=== PATIENT | male | born 1945 | race Caucasian/White ===

== ENCOUNTER 2019-06-13 10:14 | Day surgery (SDC) | payer MEDICARE, OTHER ==
[2019-06-12 15:03] VITALS: BMI 34.9
[~2019-06-13 10:14] MED LIST: Dexamethasone 20 MG/5 ML VIAL ONE; Glycopyrrolate 0.2 MG/ML 5 ML SYRINGE ONE; Lidocaine 1% PF 5 ML VIAL ONE; Ondansetron PF 4 MG/2 ML Vial ONE; PHENYLEPHRINE-NS 100 MCG/ML 10 ML SYRINGE ONE; PROPOFOL 200 MG/20 ML VIAL ONE; Rocuronium Bromide 10 MG/ML (10ML VIAL) ONE; ePHEDrine/0.9% NaCl/PF SYRINGE 50 mg/10 ml ONE
[2019-06-13] MEDS ORDERED: AFRIN NASAL MIST 15 ML BOT ONE ×2 (10:45→13:11)
[2019-06-13 11:08] LABS: Hemoglobin 15.3 g/dL (14.0-18.0)
[2019-06-13 11:28] LABS: Anion Gap 13 mmol/L (10-20); BUN (Urea Nitrogen) 13 mg/dL (8.4-25.7); Calc. Creatinine Clearance 95 mL/min (70-130); Calcium 10.4 mg/dL (7.8-10.44); Carbon Dioxide 28 mmol/L (23-31); Chloride 104 mmol/L (98-107); Estimated GFR-MDRD 74; Glucose 125 mg/dL (83-110); Potassium 5.4 mmol/L (3.5-5.1); Sodium 140 mmol/L (136-145)
[2019-06-13] MEDS ORDERED: Bacitracin Zinc Ointment 30 gm TUBE ONE (13:11)
[2019-06-13] MEDS ORDERED: Lidocaine 1% w/Epinephrine 1:100K 20 ML VIAL ONE (13:11)
[2019-06-13] MEDS ORDERED: Fentanyl 100 MCG/2 ML VIAL ONE ×2 (13:18→14:38)
[2019-06-13] MEDS ORDERED: HYDROcodone/Acetaminophen 5/325 mg Tablet ONE (15:54)
--- NOTE | 2019-06-14 12:27 | OP ---
DATE OF PROCEDURE: 06/13/2019 PREOPERATIVE DIAGNOSES: 1. Chronic rhinosinusitis. 2. Bilateral nasal polyposis. 3. Bilateral inferior turbinate hypertrophy. 4. Nasal obstruction. POSTOPERATIVE DIAGNOSES: 1. Chronic rhinosinusitis. 2. Bilateral nasal polyposis. 3. Bilateral inferior turbinate hypertrophy. 4. Nasal obstruction. PROCEDURES PERFORMED: 1. Bilateral endoscopic sinus surgery, total ethmoidectomies. 2. Bilateral endoscopic sinus surgery, maxillary antrostomies with removal of tissue. 3. Bilateral endoscopic sinus surgery, frontal sinusotomy with removal of tissue. 4. Bilateral endoscopic sinus surgery, sphenoidotomy with removal of tissue. 5. Bilateral inferior turbinate submucosal resection. 6. [employer] cranial-base image-guided navigational surgery. ESTIMATED BLOOD LOSS: 50 mL. COMPLICATIONS: None. ANESTHESIA: GETA. DESCRIPTION OF PROCEDURE: The patient was taken to the operating room and placed supine on the table. General endotracheal anesthesia was obtained by the Anesthesia Staff. Tube was secured in the left lower lip and the patient was positioned in the beach chair position. Afrin pledgets were placed in nasal cavity as the patient was prepped and draped for standard nasal procedure. Following this, the PulmonxX image-guided system was set up and calibrated was noted to be within 1 mm of accuracy. Following this, a 0-degree endoscope was advanced in the middle meatus. There were large polyps protruding from the middle meatus as well as purulent secretions and inflamed mucosa throughout the nasal cavity. The 1% lidocaine with 1:100,000 epinephrine was injected into the middle turbinates, inferior turbinates, and lateral nasal wall bilaterally. Following this, the middle turbinates were gently medialized using a [place] elevator and the 0-degree microdebrider was then used to remove the polyps that were obstructing this middle meatus area bilaterally. Polyps on the right side were sent for pathological analysis. The uncinate process was anteriorly fractured using a ball-ended probe bilaterally and was then removed using the microdebrider and up-biting [place] forceps bilaterally. Following this, the natural maxillary sinus ostia were identified using a ball-ended probe and the curved microdebrider and straight [place] forceps were used to widen the maxillary sinus ostia bilaterally. The maxillary sinus was full of nasal polyps, which were removed using the curved microdebrider and Giraffe forceps bilaterally. Following this, the ethmoidal bulla was identified and was punctured on its medial and inferior aspect bilaterally using the 0-degree microdebrider. The ethmoidal bulla was removed using the 0-degree microdebrider and the up-biting [place] forceps bilaterally. Following this, the grand lamella was identified and was punctured into the posterior ethmoidal cells with the 0-degree microdebrider. Using the [employer] image-guided system, the cribriform plate was identified posteriorly and the ethmoidal cells were opened removing nasal polyps and inflamed bony mucosa from posterior to anterior. Following this, the sphenoid sinuses were identified through the previous ethmoidectomies and the PulmonxX image-guided system was used to confirm the anterior face of the sphenoid sinus. A [place] tip suction was used to puncture a sphenoidotomy into this anterior face of the sphenoid sinus. The sphenoidotomy was then widened in a medial and inferior direction using the 0-degree microdebrider bilaterally. Following this, 45-degree endoscope and the curved microdebrider were used to further open the frontal recess cells exposing the frontal sinus ostia bilaterally. The frontal sinus ostia were widened using the microdebrider bilaterally. Nasal polyps and thick purulent secretions were was removed from the frontal sinuses bilaterally. Following this, the inferior turbinates were punctured on the anterior and inferior aspect and submucosal resection was performed of the anterior and inferior portions of the inferior turbinates bilaterally. Following this, the nasal cavity was irrigated. PROPEL stents were placed within the frontal sinus and maxillary sinus ostia bilaterally. NasoPore packing was placed within the middle meatus. The patient tolerated the procedure well. Job ID: [id number]
== END 2019-06-13 16:15 | disposition home or self-care (01) ==
LOC: SDC 10:14
PROVIDERS: ATTEND Otolaryngology Plastic Surgery within the Head & Neck
PROC: 8E09XBZ Computer Assisted Procedure of Head and Neck Region (ICD-10-PCS; principal; 2019-06-13)
PROC: 09BT8ZZ Excision of Left Frontal Sinus, Via Natural or Artificial Opening Endoscopic (ICD-10-PCS; 2019-06-13)
PROC: 09BW8ZZ Excision of Right Sphenoid Sinus, Via Natural or Artificial Opening Endoscopic (ICD-10-PCS; 2019-06-13)
PROC: 09BX8ZZ Excision of Left Sphenoid Sinus, Via Natural or Artificial Opening Endoscopic (ICD-10-PCS; 2019-06-13)
PROC: 09BQ8ZZ Excision of Right Maxillary Sinus, Via Natural or Artificial Opening Endoscopic (ICD-10-PCS; 2019-06-13)
PROC: 09BR8ZZ Excision of Left Maxillary Sinus, Via Natural or Artificial Opening Endoscopic (ICD-10-PCS; 2019-06-13)
PROC: 09BS8ZZ Excision of Right Frontal Sinus, Via Natural or Artificial Opening Endoscopic (ICD-10-PCS; 2019-06-13)
PROC: 09TV8ZZ Resection of Left Ethmoid Sinus, Via Natural or Artificial Opening Endoscopic (ICD-10-PCS; 2019-06-13)
PROC: 09TU8ZZ Resection of Right Ethmoid Sinus, Via Natural or Artificial Opening Endoscopic (ICD-10-PCS; 2019-06-13)
PROC: 09TL8ZZ Resection of Nasal Turbinate, Via Natural or Artificial Opening Endoscopic (ICD-10-PCS; 2019-06-13)
DX: J32.4 Chronic pansinusitis (principal); J34.3 Hypertrophy of nasal turbinates; J33.8 Other polyp of sinus; J34.89 Other specified disorders of nose and nasal sinuses; I10 Essential (primary) hypertension; E78.5 Hyperlipidemia, unspecified; I25.10 Atherosclerotic heart disease of native coronary artery without angina pectoris; M19.90 Unspecified osteoarthritis, unspecified site; G47.30 Sleep apnea, unspecified; J30.9 Allergic rhinitis, unspecified; Z87.891 Personal history of nicotine dependence; Z79.899 Other long term (current) drug therapy; Z88.5 Allergy status to narcotic agent; Z88.8 Allergy status to other drugs, medicaments and biological substances; Z95.1 Presence of aortocoronary bypass graft; Z99.89 Dependence on other enabling machines and devices
CPT/HCPCS: 36415; 80048; 85014; 85018; 88304; J1100; J2001; J2405; J2704; J3010